=== PATIENT | male | born 1960 | race Caucasian/White ===

== ENCOUNTER 2018-01-21 13:46 | Day surgery (SDC) | payer MEDICAID ==
[~2018-01-21] VITALS: Ht 185.4 cm; Wt 110.9 kg
[~2018-01-21 13:46] MED LIST: FURO80TA87 PO; GLYB5TAB7 PO; LISI-600 PO; POTA10CA44 PO
[2018-01-21 13:55] VITALS: BP 174/70
[2018-01-21] MEDS ORDERED: LOSARTAN PO (14:15)
[2018-01-21] MEDS ORDERED: GLYBURIDE PO (14:20)
[2018-01-21] MEDS ORDERED: OMEP40CA37 PO (14:21)
[2018-01-21] MEDS ORDERED: MIDAZolam 5mg/5ml vial ONE (15:01)
[2018-01-21] MEDS ORDERED: LIDOcaine Viscous 15ml cup ONE (15:01)
[2018-01-21] MEDS ORDERED: fentaNYL/PF 50MCG/1 ML 2ML syringe ONE (15:01)
[2018-01-21 15:25] VITALS: BP 165/105
[2018-01-21 15:35] VITALS: BP 189/73
[2018-01-21 15:45] VITALS: BP 177/107
== END 2018-01-21 15:55 | disposition home or self-care (01) ==
LOC: GI LAB 13:46
PROVIDERS: ATTEND Internal Medicine Gastroenterology
DX: I85.00 Esophageal varices without bleeding (principal); K76.6 Portal hypertension; K31.89 Other diseases of stomach and duodenum; I10 Essential (primary) hypertension; E11.9 Type 2 diabetes mellitus without complications; F17.210 Nicotine dependence, cigarettes, uncomplicated; Z86.19 Personal history of other infectious and parasitic diseases; Z86.010 Personal history of colon polyps; Z79.899 Other long term (current) drug therapy; Z80.0 Family history of malignant neoplasm of digestive organs
CPT/HCPCS: 43244; 99152; J2250; J3010; J7030; A4620; G0500

== ENCOUNTER 2018-03-11 08:16 | Day surgery (SDC) | payer MEDICAID ==
[~2018-03-11] VITALS: Ht 182.9 cm; Wt 111.4 kg
[~2018-03-11 08:16] MED LIST changes: -FURO80TA87 PO; -GLYB5TAB7 PO; +GLYBURIDE PO; +LOSARTAN PO; +OMEP40CA37 PO; -POTA10CA44 PO
[2018-03-11] MEDS ORDERED: OMEP40CA37 PO (08:34)
[2018-03-11] MEDS ORDERED: fentaNYL/PF 50MCG/1 ML 2ML syringe ONE (08:34)
[2018-03-11] MEDS ORDERED: FLO0.4C PO (08:34)
[2018-03-11] MEDS ORDERED: MIDAZolam 5mg/5ml vial ONE (08:35)
[2018-03-11] MEDS ORDERED: LIDOcaine Viscous 15ml cup ONE (08:35)
[2018-03-11 08:44] VITALS: BP 144/92
[2018-03-11 09:36] VITALS: BP 148/84
[2018-03-11 09:45] VITALS: BP 155/69
[2018-03-11 09:55] VITALS: BP 154/69
[2018-03-11 10:05] VITALS: BP 156/83
== END 2018-03-11 10:17 | disposition home or self-care (01) ==
LOC: GI LAB 08:16
PROVIDERS: ATTEND Internal Medicine Gastroenterology
DX: I85.00 Esophageal varices without bleeding (principal); K76.6 Portal hypertension; K31.89 Other diseases of stomach and duodenum; I10 Essential (primary) hypertension; F17.210 Nicotine dependence, cigarettes, uncomplicated; E11.9 Type 2 diabetes mellitus without complications; Z86.19 Personal history of other infectious and parasitic diseases; Z79.899 Other long term (current) drug therapy; Z98.890 Other specified postprocedural states
CPT/HCPCS: 43244; 99152; J2250; J3010; J7030; A4620

== ENCOUNTER 2018-06-17 07:44 | Day surgery (SDC) | payer MEDICAID ==
[~2018-06-17] VITALS: Ht 182.9 cm; Wt 111.4 kg
[~2018-06-17 07:44] MED LIST changes: +FLO0.4C PO; -LISI-600 PO
[2018-06-17 07:54] VITALS: BP 131/66
[2018-06-17] MEDS ORDERED: fentaNYL/PF 50MCG/1 ML 2ML syringe ONE (08:05)
[2018-06-17] MEDS ORDERED: SPIR25TA5 PO (08:05)
[2018-06-17] MEDS ORDERED: LIDOcaine Viscous 15ml cup ONE (08:06)
[2018-06-17] MEDS ORDERED: MIDAZolam 5mg/5ml vial ONE (08:06)
[2018-06-17 09:16] VITALS: BP 131/66
[2018-06-17 09:26] VITALS: BP 131/72
[2018-06-17 09:36] VITALS: BP 144/83
[2018-06-17 09:46] VITALS: BP 137/59
== END 2018-06-17 09:50 | disposition home or self-care (01) ==
LOC: GI LAB 07:44
PROVIDERS: ATTEND Internal Medicine Gastroenterology
DX: I85.00 Esophageal varices without bleeding (principal); K76.6 Portal hypertension; K31.89 Other diseases of stomach and duodenum; Z79.899 Other long term (current) drug therapy
CPT/HCPCS: 43235; J2250; J3010; J7030; 99152; A4620

== ENCOUNTER 2018-10-03 13:59 | Outpatient (CLI) | payer MEDICAID ==
[~2018-10-03 13:59] MED LIST changes: +SPIR25TA5 PO
[2018-10-03] MEDS ORDERED: CYCL-145 PO (14:50)
[2018-10-03] MEDS ORDERED: DUTA0.5C16 PO (14:50)
[2018-10-03] MEDS ORDERED: GLIM2TAB2 PO (14:50)
[2018-10-03 15:14] LABS: BASOPHILS % (AUTO) 0.5 % (0-1); EOSINOPHILS # (AUTO) 0.1 X10'3 (0-0.9); EOSINOPHILS % (AUTO) 6.7 % (0-6); LYMPHOCYTES # (AUTO) 0.4 X10'3 (1.1-4.8); LYMPHOCYTES % (AUTO) 25.6 % (21-51); MEAN CORPUSCULAR HEMOGLOBIN 28.8 PG (27.0-31.0); MEAN CORPUSCULAR HGB CONC 33.1 g/dL (33.0-36.5); MEAN CORPUSCULAR VOLUME 86.8 FL (78-98); MEAN PLATELET VOLUME 10.1 FL (7.4-10.4); MONOCYTES # (AUTO) 0.2 X10'3 (0-0.9); MONOCYTES % (AUTO) 11.3 % (2-12); NEUTROPHILS % (AUTO) 55.9 % (42-75); PRE OP HEMATOCRIT 35.5 % (42.0-52.0); PRE OP HEMOGLOBIN 11.8 g/dL (14.0-17.9); RED BLOOD COUNT 4.09 X10'6 (4.70-6.10); RED CELL DISTRIBUTION WIDTH 15.6 % (11.5-14.5)
[2018-10-03 15:15] LABS: CLARITY,URINE SLIGHTLY CLOUDY (Clear); COLOR,URINE YELLOW (Yellow); GLUCOSE, URINE NEGATIVE (Neg); KETONES,URINE NEGATIVE (Neg); LEUKOCYTE ESTERASE ,URINE NEGATIVE (Neg); NITRITES, URINE NEGATIVE (Neg); OCCULT BLOOD,URINE NEGATIVE (Neg); PROTEIN,URINE TRACE mg/dl (Neg)
[2018-10-03 15:16] LABS: UA COLLECTION TYPE CLN CATCH MIDSTREAM
[2018-10-03 15:21] LABS: PRE OP PLATELET COUNT 45 X10'3 (140-440)
[2018-10-03 15:26] LABS: HYALINE CASTS 0-3 /LPF (NEGATIVE); MUCUS STRANDS FEW /LPF (Neg); SQUAMOUS EPITHELIAL CELL,UR FEW /LPF (FEW)
[2018-10-03 15:27] LABS: BACTERIA,URINE FEW /HPF (Neg); RBC,URINE 0-2 /HPF (0-2); WBC,URINE 0-4 /HPF (0-4)
[2018-10-03 15:29] LABS: ALBUMIN 3.1 G/DL (3.4-5.0); ALBUMIN/GLOBULIN RATIO 0.9 (1.1-1.5); ALKALINE PHOSPHATASE 96 IU/L (46-116); BLOOD UREA NITROGEN 17 MG/DL (7-18); BUN/CREATININE RATIO 16.7 (5.4-32.0); CALCIUM 8.3 MG/DL (8.5-10.1); CHLORIDE 107 MMOL/L (99-107); CREATININE 1.02 MG/DL (0.60-1.10); PRE OP ALT 72 U/L (30-65); PRE OP ANION GAP 5 (8-16); PRE OP AST 50 U/L (10-37); PRE OP BILIRUB, TOTAL 1.1 MG/DL (0.0-1.0); PRE OP POTASSIUM 3.7 MMOL/L (3.4-5.1); PRE OP SODIUM 141 MMOL/L (135-145); TOTAL CARBON DIOXIDE 28.7 MMOL/L (24-32); TOTAL PROTEIN 6.6 G/DL (6.4-8.2); eGFR 75 ML/MIN
[2018-10-03 15:34] LABS: PRE OP GLUCOSE 159 MG/DL (70-104)
[2018-10-03 15:40] LABS: TOTAL CELLS COUNTED 100
[2018-10-03 15:41] LABS: PLATELET ESTIMATE DECREASED
== END 2018-10-03 23:59 | disposition home or self-care (01) ==
LOC: PRE-OP 13:59 → EDSTATUS 10-09 14:15
PROVIDERS: ATTEND Surgery
DX: Z01.818 Encounter for other preprocedural examination (principal); K40.90 Unilateral inguinal hernia, without obstruction or gangrene, not specified as recurrent; K21.9 Gastro-esophageal reflux disease without esophagitis; I10 Essential (primary) hypertension; E11.9 Type 2 diabetes mellitus without complications; F17.200 Nicotine dependence, unspecified, uncomplicated
CPT/HCPCS: 36415; 80053; 81001; 85025; 93005

== ENCOUNTER 2018-11-15 10:10 | Emergency (ER) | payer MEDICAID ==
[~2018-11-15] VITALS: Ht 182.9 cm; Wt 113.0 kg
[~2018-11-15 10:10] MED LIST changes: +CYCL-145 PO; +DUTA0.5C16 PO; +GLIM2TAB2 PO; -GLYBURIDE PO
[2018-11-15 11:30] LABS: BASOPHILS % (AUTO) 0.7 % (0-1); EOSINOPHILS # (AUTO) 0.3 X10'3 (0-0.9); EOSINOPHILS % (AUTO) 6.3 % (0-6); HEMATOCRIT 35.2 % (42.0-52.0); HEMOGLOBIN 11.9 g/dl (14.0-17.9); LYMPHOCYTES # (AUTO) 0.5 X10'3 (1.1-4.8); LYMPHOCYTES % (AUTO) 11.5 % (21-51); MEAN CORPUSCULAR HEMOGLOBIN 29.5 PG (27.0-31.0); MEAN CORPUSCULAR HGB CONC 33.9 g/dL (33.0-36.5); MEAN CORPUSCULAR VOLUME 86.8 FL (78-98); MONOCYTES # (AUTO) 0.6 X10'3 (0-0.9); MONOCYTES % (AUTO) 14.1 % (2-12); NEUTROPHILS # (AUTO) 2.8 X10'3 (1.8-7.7); NEUTROPHILS % (AUTO) 67.4 % (42-75); PLATELET COUNT 56 X10'3 (140-440); RED BLOOD COUNT 4.06 X10'6 (4.70-6.10); RED CELL DISTRIBUTION WIDTH 15.3 % (11.5-14.5); WHITE BLOOD COUNT 4.2 X10'3 (4.5-11.0)
--- NOTE | 2018-11-15 11:37 | NUR ---
PT UNABLE TO VOID FOR UA AT THIS TIME, HAS URINAL AT BEDSIDE.
[2018-11-15 11:44] LABS: ALANINE AMINOTRANSFERASE 58 U/L (12-78); ALBUMIN/GLOBULIN RATIO 0.8 (1.1-1.5); ALKALINE PHOSPHATASE 101 IU/L (46-116); ANION GAP 5 (8-16); ASPARTATE AMINO TRANSFERASE 37 U/L (10-37); BILIRUBIN,TOTAL 1.8 MG/DL (0.1-1.0); BLOOD UREA NITROGEN 18 MG/DL (7-18); CALCIUM 7.9 MG/DL (8.5-10.1); CHLORIDE 103 MMOL/L (99-107); POTASSIUM 3.8 MMOL/L (3.5-5.1); SODIUM 134 MMOL/L (135-145); eGFR 76 ML/MIN
[2018-11-15 11:45] LABS: GLUCOSE 159 MG/DL (70-104)
[2018-11-15 12:17] LABS: CLARITY,URINE CLEAR (Clear); COLOR,URINE YELLOW (Yellow); GLUCOSE, URINE NEGATIVE (Neg); KETONES,URINE NEGATIVE (Neg); LEUKOCYTE ESTERASE ,URINE NEGATIVE (Neg); NITRITES, URINE NEGATIVE (Neg); OCCULT BLOOD,URINE NEGATIVE (Neg); PH,URINE 5.5 (4.8-8.0); PROTEIN,URINE TRACE mg/dl (Neg)
[2018-11-15] MEDS ORDERED: ondansetron 4mg rapidly disintigrating tab PO ONE (12:20)
[2018-11-15 12:21] LABS: UA COLLECTION TYPE CLN CATCH MIDSTREAM
[2018-11-15] MEDS ORDERED: HYDROcodone/acetaminophen 10/325mg tab PO ONE (12:25)
[2018-11-15 12:38] LABS: LIPASE 151 U/L (73-393)
[2018-11-15 12:48] LABS: FINE GRANULAR CAST 0-3 /LPF (NEGATIVE); HYALINE CASTS 0-3 /LPF (NEGATIVE); MUCUS STRANDS FEW /LPF (Neg); SQUAMOUS EPITHELIAL CELL,UR FEW /LPF (FEW)
[2018-11-15 12:50] LABS: BACTERIA,URINE 1+ /HPF (Neg); RBC,URINE 0-2 /HPF (0-2); TRANSITIONAL EPI CELLS,URINE FEW /HPF; WBC,URINE 0-4 /HPF (0-4)
[2018-11-15 13:31] VITALS: BP 161/77
[2018-11-15] MEDS ORDERED: ONDA8TAB6 PO (13:35)
== END 2018-11-15 13:53 | disposition home or self-care (01) ==
LOC: ER 10:10
DX: R10.10 Upper abdominal pain, unspecified (principal); R11.2 Nausea with vomiting, unspecified; R51 Headache; R68.83 Chills (without fever); R53.81 Other malaise; R05 Cough; K40.90 Unilateral inguinal hernia, without obstruction or gangrene, not specified as recurrent; E11.9 Type 2 diabetes mellitus without complications; F17.200 Nicotine dependence, unspecified, uncomplicated; Z86.19 Personal history of other infectious and parasitic diseases; Z87.19 Personal history of other diseases of the digestive system; Z79.899 Other long term (current) drug therapy
CPT/HCPCS: 36415; 74176; 80053; 81001; 83690; 85025; 85610; 99284

== ENCOUNTER 2019-08-04 07:58 | Day surgery (SDC) | payer MEDICAID ==
[~2019-08-04] VITALS: Ht 182.9 cm; Wt 109.1 kg
[~2019-08-04 07:58] MED LIST changes: -DUTA0.5C16 PO; +DUTA0.5C17 PO; +EZET10TA6 PO; -GLIM2TAB2 PO; +GLIM2TAB6 PO; +LOSA50TA3 PO; -LOSARTAN PO; +OMEP40CA13 PO; -OMEP40CA37 PO
[2019-08-04 08:03] VITALS: BP 149/56
[2019-08-04] MEDS ORDERED: LOSA50TA64 PO (08:11)
[2019-08-04] MEDS ORDERED: OMEP40CA13 PO (08:12)
[2019-08-04] MEDS ORDERED: FLO0.4C PO (08:13)
[2019-08-04] MEDS ORDERED: SPIR50TA5 PO (08:13)
[2019-08-04] MEDS ORDERED: FURO-149 PO (08:14)
[2019-08-04] MEDS ORDERED: MIDAZolam 5mg/5ml vial ONE (08:37)
[2019-08-04] MEDS ORDERED: LIDOcaine Viscous 15ml cup ONE (08:37)
[2019-08-04] MEDS ORDERED: fentaNYL/PF 50MCG/1 ML 2ML syringe ONE (08:37)
[2019-08-04 10:08] VITALS: BP 158/84
[2019-08-04 10:17] VITALS: BP 167/80
[2019-08-04 10:27] VITALS: BP 167/87
[2019-08-04 10:37] VITALS: BP 158/82
== END 2019-08-04 10:40 | disposition home or self-care (01) ==
LOC: GI LAB 07:58
PROVIDERS: ATTEND Internal Medicine Gastroenterology
DX: I85.00 Esophageal varices without bleeding (principal); K76.6 Portal hypertension; K31.89 Other diseases of stomach and duodenum; K29.80 Duodenitis without bleeding
CPT/HCPCS: 43239; 43244; J2250; J3010; J7040; 99152; A4620

== ENCOUNTER 2019-12-19 08:01 | Day surgery (SDC) | payer MEDICAID ==
[~2019-12-19] VITALS: Ht 182.9 cm; Wt 100.0 kg
[~2019-12-19 08:01] MED LIST changes: +FURO-149 PO; -LOSA50TA3 PO; +LOSA50TA64 PO; -SPIR25TA5 PO; +SPIR50TA5 PO
[2019-12-19 08:17] VITALS: BP 136/97
[2019-12-19] MEDS ORDERED: POTA8CAP20 PO (08:18)
[2019-12-19] MEDS ORDERED: METF-436 PO (08:19)
[2019-12-19] MEDS ORDERED: fentaNYL/PF 50MCG/1 ML 2ML syringe ONE (08:28)
[2019-12-19] MEDS ORDERED: MIDAZolam 5mg/5ml vial ONE (08:28)
[2019-12-19] MEDS ORDERED: LIDOcaine Viscous 15ml cup ONE (08:29)
[2019-12-19 09:44] VITALS: BP 136/92
[2019-12-19 09:54] VITALS: BP 157/81
[2019-12-19 10:04] VITALS: BP 135/58
[2019-12-19 10:14] VITALS: BP 144/75
== END 2019-12-19 10:25 | disposition home or self-care (01) ==
LOC: GI LAB 08:01
PROVIDERS: ATTEND Internal Medicine Gastroenterology
DX: I85.00 Esophageal varices without bleeding (principal); K22.8 Other specified diseases of esophagus; K76.6 Portal hypertension; K31.89 Other diseases of stomach and duodenum
CPT/HCPCS: 43244; 99152; J2250; J3010; J7040; A4620

== ENCOUNTER → 2021-11-17 | Day surgery (SDC) | payer MEDICAID ==
[2021-11-15 10:03] LABS: EOSINOPHILS # (AUTO) 0.2 X10'3 (0-0.9); LYMPHOCYTES # (AUTO) 0.2 X10'3 (1.1-4.8); NEUTROPHILS # (AUTO) 0.8 X10'3 (1.8-7.7)
[2021-11-15 10:05] LABS: EOSINOPHILS % (AUTO) 12.2 % (0-6); MEAN CORPUSCULAR HEMOGLOBIN 25.8 PG (27.0-31.0); MEAN CORPUSCULAR HGB CONC 32.6 g/dL (33.0-36.5); MEAN CORPUSCULAR VOLUME 79.1 FL (78-98); MEAN PLATELET VOLUME 9.4 FL (7.4-10.4); MONOCYTES # (AUTO) 0.3 X10'3 (0-0.9); MONOCYTES % (AUTO) 18.1 % (2-12); NEUTROPHILS % (AUTO) 53.7 % (42-75); PRE OP HEMATOCRIT 34.3 % (42.0-52.0); PRE OP HEMOGLOBIN 11.2 g/dL (14.0-17.9); RED BLOOD COUNT 4.34 X10'6 (4.70-6.10); RED CELL DISTRIBUTION WIDTH 19.4 % (11.5-14.5)
[2021-11-15 10:09] LABS: PRE OP PLATELET COUNT 36 X10'3 (140-440)
[2021-11-15 10:32] LABS: ANISOCYTOSIS 2+; LARGE PLATELETS FEW; MICROCYTOSIS 1+; PLATELET ESTIMATE DECREASED; TOTAL CELLS COUNTED 100
[2021-11-15 10:57] LABS: ALBUMIN 3.3 G/DL (3.4-5.0); ALBUMIN/GLOBULIN RATIO 0.9 (1.1-1.5); ALKALINE PHOSPHATASE 89 IU/L (46-116); BLOOD UREA NITROGEN 16 MG/DL (7-18); BUN/CREATININE RATIO 13.8 (5.4-32.0); CALCIUM 8.4 MG/DL (8.5-10.1); CHLORIDE 104 MMOL/L (99-107); CREATININE 1.16 MG/DL (0.60-1.10); PRE OP ALT 65 U/L (30-65); PRE OP ANION GAP 8 (8-16); PRE OP AST 53 U/L (10-37); PRE OP GLUCOSE 88 MG/DL (70-104); PRE OP SODIUM 139 MMOL/L (135-145); TOTAL CARBON DIOXIDE 27.2 MMOL/L (24-32); TOTAL PROTEIN 7.1 G/DL (6.4-8.2); eGFR 64 ML/MIN
[~2021-11-17] VITALS: Ht 182.9 cm; Wt 108.0 kg
[~2021-11-17] MED LIST changes: +BUPIVAcaine 0.5% inj/PF 30 ML ONE; +BUPIVAcaine 0.5% inj/PF 30 ml vial IJ ONE; -CYCL-145 PO; +DULA0.75 SQ; -DUTA0.5C17 PO; +DUTA0.5C36 PO; +EMPA10TA PO; -GLIM2TAB6 PO; +HYDROcodone/acetaminophen 5mg/325mg tablet PO PRN; +INSU100C10 SQ; +INSU100V9 SQ; +LACT10SO67 PO; +LIDOcaine 1% 30ml preserv. free vial ONE; +LIDOcaine 2% (20mg/ml) 5ml vial ONE; -LOSA50TA64 PO; +METF-436 PO; -OMEP40CA13 PO; +OMEP40CA21 PO; +RIFA550T PO; +ceFAZolin inj. 2,000 MG in dextrose 5%-water 100 ML IV ONE; +dexamethasone sod phosphate 4mg/ml inj. ONE; +famotidine 20mg tablet PO ONE; +fentaNYL/PF 50MCG/1 ML 2ML syringe IV PRN; +hydrALAZINE 20mg/ml inj. IV PRN; +labetalol 20mg/4ml (5mg/ml) syringe IV PRN; +midazolam 1 mg/ML 2ml injection ONE; +morphine 2 MG/ML inj. syringe IV PRN; +morphine 4 MG/ML inj SYRINge IV PRN; +morphine 4 MG/ML inj SYRINge ONE; +ondansetron/PF 4mg/2ml inj IV PRN; +ondansetron/PF 4mg/2ml inj ONE; +propofol inj 20 ML IV ONE; +ringers solution, lacted 1,000 ML IV SCH; +sevoflurane 250ml liquid IH ONE
[2021-11-17 10:20] VITALS: BP 124/73
[2021-11-17 14:45] VITALS: BP 136/65
--- NOTE | 2021-11-17 14:45 | NUR ---
Received from OR via [facility] IN STABLE CONDITION , accompanied by Anesthesiologist and MIXING MACHINE OPERATOR report given by MIXING MACHINE OPERATOR AND Anesthesiolgist. Addendum: 11/17/21 at 1510 by Vaishali Law RN Amended: Links added.
[2021-11-17 14:50] VITALS: BP 118/60
[2021-11-17 15:00] VITALS: BP 132/62
[2021-11-17 15:10] VITALS: BP 149/72
[2021-11-17 15:20] VITALS: BP 128/67
--- NOTE | 2021-11-17 15:35 | NUR ---
PATIENT DISCHARGED FROM PACU IN STABLE CONDITION AFTER WRITTEN AND VERBAL DISCHARGE INSTRUCTIONS GIVEN. PATIENT GAVE VERBAL UNDERSTANDING OF INSTRUCTIONS GIVEN. PATIENT LEFT FACILITY VIA WHEELCHAIR WITH RN. Addendum: 11/17/21 at 1603 by Vaishali Law RN Amended: Links added.
== END | disposition home or self-care (01) ==
LOC: PAS 10:12
PROVIDERS: ATTEND Surgery
DX: D17.1 Benign lipomatous neoplasm of skin and subcutaneous tissue of trunk (principal); D17.39 Benign lipomatous neoplasm of skin and subcutaneous tissue of other sites; E11.9 Type 2 diabetes mellitus without complications; K21.9 Gastro-esophageal reflux disease without esophagitis; N40.0 Benign prostatic hyperplasia without lower urinary tract symptoms; E66.9 Obesity, unspecified; Z68.32 Body mass index [BMI] 32.0-32.9, adult; Z85.05 Personal history of malignant neoplasm of liver; Z79.899 Other long term (current) drug therapy; Z87.891 Personal history of nicotine dependence; Z98.890 Other specified postprocedural states; Z86.19 Personal history of other infectious and parasitic diseases; Z79.4 Long term (current) use of insulin; Z80.0 Family history of malignant neoplasm of digestive organs; Z82.49 Family history of ischemic heart disease and other diseases of the circulatory system; Z83.3 Family history of diabetes mellitus
CPT/HCPCS: 21932; 26111; 80053; 82948; 85025; 93005; A6222; J0690; J1100; J2250; J2270; J2405; J2704; J3490; J7030; J7060; J7120; S0020; Z7506; Z7508; Z7512; 85007; A4215; A4618; A6449; A7000

== ENCOUNTER 2022-08-06 12:43 | Emergency (ER) | payer MEDICAID ==
[~2022-08-06] VITALS: Ht 185.4 cm; Wt 93.0 kg
[~2022-08-06 12:43] MED LIST changes: -BUPIVAcaine 0.5% inj/PF 30 ML ONE; -BUPIVAcaine 0.5% inj/PF 30 ml vial IJ ONE; -HYDROcodone/acetaminophen 5mg/325mg tablet PO PRN; -LIDOcaine 1% 30ml preserv. free vial ONE; -LIDOcaine 2% (20mg/ml) 5ml vial ONE; -ceFAZolin inj. 2,000 MG in dextrose 5%-water 100 ML IV ONE; -dexamethasone sod phosphate 4mg/ml inj. ONE; -famotidine 20mg tablet PO ONE; -fentaNYL/PF 50MCG/1 ML 2ML syringe IV PRN; -hydrALAZINE 20mg/ml inj. IV PRN; -labetalol 20mg/4ml (5mg/ml) syringe IV PRN; -midazolam 1 mg/ML 2ml injection ONE; -morphine 2 MG/ML inj. syringe IV PRN; -morphine 4 MG/ML inj SYRINge IV PRN; -morphine 4 MG/ML inj SYRINge ONE; -ondansetron/PF 4mg/2ml inj IV PRN; -ondansetron/PF 4mg/2ml inj ONE; -propofol inj 20 ML IV ONE; -ringers solution, lacted 1,000 ML IV SCH; -sevoflurane 250ml liquid IH ONE
[2022-08-06] MEDS ORDERED: HYDROcodone/acetaminophen 5mg/325mg tablet PO ONE (14:20)
[2022-08-06] MEDS ORDERED: vancomycin/NS 1 GM ADD-VANTAGE 250 ML IV ONE (14:20)
[2022-08-06] MEDS ORDERED: piperacillin/tazo 3.375gm/50ml 50 ML IV ONE (14:20)
[2022-08-06 15:16] LABS: BASOPHILS % (AUTO) 1.3 % (0-1); EOSINOPHILS % (AUTO) 1.7 % (0-6); HEMATOCRIT 29.6 % (42.0-52.0); HEMOGLOBIN 10.1 g/dl (14.0-17.9); LYMPHOCYTES # (AUTO) 0.3 X10'3 (1.1-4.8); LYMPHOCYTES % (AUTO) 10.2 % (21-51); MEAN CORPUSCULAR HEMOGLOBIN 26.6 PG (27.0-31.0); MEAN CORPUSCULAR VOLUME 78.2 FL (78-98); MEAN PLATELET VOLUME 7.1 FL (7.4-10.4); MONOCYTES # (AUTO) 0.3 X10'3 (0-0.9); MONOCYTES % (AUTO) 10.6 % (2-12); NEUTROPHILS # (AUTO) 2.1 X10'3 (1.8-7.7); NEUTROPHILS % (AUTO) 76.2 % (42-75); PLATELET COUNT 118 X10'3 (140-440); RED BLOOD COUNT 3.78 X10'6 (4.70-6.10); RED CELL DISTRIBUTION WIDTH 14.7 % (11.5-14.5); WHITE BLOOD COUNT 2.8 X10'3 (4.5-11.0)
[2022-08-06 15:22] LABS: ALANINE AMINOTRANSFERASE 15 U/L (12-78); ALBUMIN 3.7 G/DL (3.4-5.0); ALBUMIN/GLOBULIN RATIO 1.4 (1.1-1.5); ALKALINE PHOSPHATASE 99 IU/L (46-116); ANION GAP 7 (8-16); ASPARTATE AMINO TRANSFERASE 14 U/L (10-37); BILIRUBIN,TOTAL 0.7 MG/DL (0.1-1.0); BLOOD UREA NITROGEN 25 MG/DL (7-18); BUN/CREATININE RATIO 22.1 (5.4-32.0); CALCIUM 8.3 MG/DL (8.5-10.1); CHLORIDE 105 MMOL/L (99-107); CREATININE 1.13 MG/DL (0.60-1.10); GLUCOSE 220 MG/DL (70-104); POTASSIUM 5.1 MMOL/L (3.5-5.1); SODIUM 139 MMOL/L (135-145); TOTAL CARBON DIOXIDE 26.9 MMOL/L (24-32); TOTAL PROTEIN 6.3 G/DL (6.4-8.2); eGFR 66 ML/MIN
[2022-08-06] MEDS ORDERED: iohexol 300mg/ml 100ml inj. ONE (15:32)
[2022-08-06 16:23] LABS: TOTAL CELLS COUNTED 100
[2022-08-06 16:24] LABS: MICROCYTOSIS 1+; PLATELET ESTIMATE DECREASED; ROULEAUX 1+
[2022-08-06] MEDS ORDERED: morphine 2 MG/ML inj. syringe IV ONE ×2 (18:35→21:45)
[2022-08-06] MEDS ORDERED: ondansetron/PF 4mg/2ml inj IV ONE (18:50)
--- NOTE | 2022-08-07 00:36 | NUR ---
CONTACTED [facility] ABOUT THE PATIENT THAT IS BEING TRANSFER DOWN THERE TO SEE IF THEY HAD A BED FOR THE PATIENT " THEY STATED THAT THEY WILL NOT HAVE A BED TO NIGHT AND TO CALL BACK AROUND 9 AM TOMORROW , BUT IF ANYTHING CHANGES THEY WILL CALL BACK ".
[2022-08-07] MEDS ORDERED: piperacillin/tazo 3.375gm/50ml 50 ML IV ONE (01:40)
[2022-08-07] MEDS ORDERED: morphine 2 MG/ML inj. syringe IV ONE (02:25)
[2022-08-07] MEDS ORDERED: vancomycin/NS 1 GM ADD-VANTAGE 250 ML IV SCH (04:00)
[2022-08-07] MEDS ORDERED: piperacillin/tazo 3.375gm/50ml 50 ML IV SCH (08:00)
[2022-08-07] MEDS ORDERED: morphine 4 MG/ML inj SYRINge IM ONE (09:35)
--- NOTE | 2022-08-07 10:39 | NUR ---
Pt admitted he has been taking his own meds that are inside his pillbox. Pt was informed that it is against our hospital policy. Pt stated that "you guys don't have it here in [place]. Those are anti-rejection medications that I must take!"
[2022-08-07 12:59] VITALS: BP 165/77
--- NOTE | 2022-08-07 13:00 | NUR ---
Report given to Gabriella JARA at the Transfer Center at [facility]. She confirmed to me that patient got a bed assignment already .
--- NOTE | 2022-08-07 14:41 | NUR ---
Hands off report given to EMS
== END 2022-08-07 18:46 | disposition short-term general hospital (02) ==
LOC: ER 12:44
DX: T81.9XXA Unspecified complication of procedure, initial encounter (principal); Z20.822 Contact with and (suspected) exposure to COVID-19; L02.211 Cutaneous abscess of abdominal wall; Z79.899 Other long term (current) drug therapy; Z79.84 Long term (current) use of oral hypoglycemic drugs
CPT/HCPCS: 36415; 74177; 80053; 82948; 83605; 84145; 85007; 85025; 87040; 87811; 96365; 96366; 96367; 96368; 96372; 96375; 96376; 99285; J2270; J2405; J2543; J3370; J3490; J7030; Q9967